=== PATIENT | male | born 1955 | race Caucasian/White ===

== ENCOUNTER 2018-06-16 14:36 | Emergency (ER) | payer OTHER ==
--- NOTE | 2018-06-16 14:52 | ED Physician Documentation ---
General Adult - HISTORIAN Historian: patient - HPI Stated Complaint: "pain all over for a long time" Chief Complaint: General Adult Onset: other (3-4 months ) Timing: still present Severity: mild Further Comments: yes (He states he has an appt with Dr Allen this week but states he couldnt wait any longer. Denies pain is worse then the pain has been at a level although he states he "just cant take it" any longer. HE is taking ibuprofen 6 times a day and alieve along with alcohol frequently. He states this is not helping his pain. 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 Denies any recent injury . He went to the urgent care this weekend at the [place] while he was on vacation and all he was told was to see his PCP. He denie any loss of bowel or bladder. He also states his most significant pain is in his low back .) Last known Well Code/Unknown Code: Unknown - ROS CONST: no problems EYES/ENT: none CVS/RESP: none GI/: none MS/SKIN/LYMPH: none - PAST HX Past History: hypertension Other History: none Surgeries/Procedures: other Immunizations: UTD Allergies/Adverse Reactions: Allergies Allergy/AdvReac Type Severity Reaction Status Date / Time No Known Allergies Allergy Verified 06/16/18 15:15 Home Medications: Ambulatory Orders Medication Instructions Recorded Insulin Lispro [Humalog] 30 units SQ AC30 06/16/18 - SOCIAL HX Smoking History: cigarettes Alcohol Use: occasionally Drug Use: none - FAMILY HX Family History: No - VITAL SIGNS Vital Signs: Vital Signs Temp Pulse Resp BP Pulse Ox 164/73 07/31/16 04:10 - REVIEWED ASSESSMENTS Nursing Assessment Reviewed: Yes Vitals Reviewed: Yes Progress - Progress Progress: 1600: requested to walk to xray. tolerated well no complaint of pain DG 1630: standing in door way to room. Asking for a diet soda. No complaint of pain DG General Adult Physical Exam - PHYSICAL EXAM GENERAL APPEARANCE: no distress EENT: eye inspection normal, ENT inspection normal NECK: normal inspection RESPIRATORY: no resp distress, chest non-tender, breath sounds normal CVS: reg rate & rhythm, heart sounds normal, equal pulses, no murmur ABDOMEN: soft, normal bowel sounds, no distension, non-tender BACK: normal inspection, no CVA tenderness SKIN: warm/dry, normal color EXTREMITIES: non-tender, normal range of motion, no evidence of injury, no edema NEURO: oriented X3, CN's nml as tested, motor nml, sensation nml, mood/affect nml, cognition normal Discharge Clincal Impression: Generalized pain Referrals: Shaheen Allen MD [Primary Care Provider] - 2 Days Additional Instructions: 1.continue meds 2. follow up with PCP 3. Return to ER for any concerns Condition: Stable Disposition: 01 HOME, SELF-CARE Decision to Admit: NO Date of Decison to Admit: 06/16/18 Decision Time: 17:00
[2018-06-16 17:03] VITALS: BP 186/98
--- NOTE | 2018-06-16 17:16 | Diagnostic Imaging Report ---
[facility] [id number] [facility].[address] [id number] Report Submission Date: Jun 16, 2018 4:37:13 PM CDT Patient Study Name: FAVIAN LEE Date: Jun 16, 2018 3:52:28 PM CDT Modality Type: DX Gender: M Description: SPINE : 57 Institution: [facility] Physician: JASPER GAR Examination: Plain film lumbar spine History: PT STATE CHRONIC LOW BACK PAIN THAT RADIATES DOWN TOWARDS THE HIPS X1 WEEK. NO KNOWN TRAUMA. (Hx) Findings: 3 views of the lumbar spine demonstrate normal lumbar vertebral body height. Mild anterior wedging of the T12 vertebral body. Scattered osteophytes. Facet degenerative changes. No soft tissue abnormalities. Impression: No lumbar vertebral body compression deformity. If patient is experiencing neurologic symptoms, consider obtaining MRI to further evaluate. Electronically signed on Jun 16, 2018 4:37:13 PM CDT by: Brayan PETER
[2018-06-17 07:59] LABS: CANNABINOIDS NEGATIVE ng/mL (< 50); METHYLENEDIOXYMETHAMPHETAMINE NEGATIVE ng/mL (<500)
[2018-06-17 08:01] LABS: APPEARANCE,URINE CLEAR (CLEAR); COLOR,URINE YELLOW (YELLOW); OCCULT BLOOD,URINE NEGATIVE (NEGATIVE); PH URINE 5.5 (5.0 - 8.0)
== END 2018-06-16 17:01 | disposition home or self-care (01) ==
LOC: ED 14:36
DX: R52 Pain, unspecified (principal)
CPT/HCPCS: 72100; 80377; 81002; 99283; G0481

== ENCOUNTER 2018-06-20 11:00 | Outpatient (CLI) | payer OTHER ==
[2018-06-20 12:16] LABS: eGFR (African) > 60; eGFR (Non-African) > 60
== END 2018-06-20 11:02 ==
LOC: LAB 11:00
PROVIDERS: ATTEND Family Medicine
DX: E11.9 Type 2 diabetes mellitus without complications (principal); I10 Essential (primary) hypertension; M25.50 Pain in unspecified joint; Z79.899 Other long term (current) drug therapy
CPT/HCPCS: 36415; 80053; 80061; 82043; 83036; 85651; 86038; 86225; 86235; 86431

== ENCOUNTER 2018-06-26 17:30 | Outpatient (CLI) | payer OTHER | END 2018-06-26 17:32 | LOC: LAB 17:30 | PROVIDERS: ATTEND Family Medicine | DX: M25.50 Pain in unspecified joint (principal) | CPT/HCPCS: 86618; 86666; 86757 ==